=== PATIENT | male | born 1995 ===

== ENCOUNTER 2017-05-10 02:21 | Emergency (ER) | payer SELFPAY ==
[~2017-05-10] VITALS: Ht 170.2 cm; Wt 82.0 kg
[2017-05-10 02:25] VITALS: Ht 170.2 cm; Wt 82.0 kg
[2017-05-10] MEDS ORDERED: IBUPROFEN 800 MG TAB PO ONE (03:00)
[2017-05-10] MEDS ORDERED: morphine 10 MG INJ IV ONE (03:00)
--- NOTE | 2017-05-10 04:18 | RADRPT ---
PROCEDURE: XR Left Ankle. CLINICAL INDICATION: Fall, twisted, pain TECHNIQUE: AP, oblique and lateral views of the left ankle were performed. COMPARISON: None. FINDINGS: There is diffuse soft tissue swelling greatest laterally. No fracture or dislocation is seen. IMPRESSION: There is diffuse soft tissue swelling greatest laterally. No fracture or dislocation is seen. RPTAT: HJES .Jerel Larson MD, MD Date Time Electronically viewed and signed by .Jerel Larson MD, on 05/10/2017 04:18 .S/
[2017-05-10] MEDS ORDERED: NAPR-688 PO (04:25)
--- NOTE | 2017-05-10 04:33 | ERD ---
ER Documentation Chief Complaint Date/Time DATE: 05/10/17 TIME: 04:27 Chief Complaint sp ground level fall, left ankle pain HPI 22-year-old male comes in for left ankle pain after he twisted his ankle inverting it while he fell. He had no other injuries. He has pain only along the lateral ankle and he has discoloration and bruising . ROS All systems reviewed and are negative except as per history of present illness. Medications Home Meds Active Scripts Naproxen* (Naproxen*) 500 Mg Tablet, 500 MG PO BID Y for PAIN, #20 TAB Prov:GOLD STROUD DO 05/10/17 Allergies Allergies: Coded Allergies: No Known Allergy (Unverified , 05/10/17) PMhx/Soc Medical and Surgical Hx: pt denies Medical Hx, pt denies Surgical Hx Hx Alcohol Use: No Hx Substance Use: No Hx Tobacco Use: No Smoking Status: Never smoker Physical Exam Vitals Vital Signs Date Time Temp Pulse Resp B/P Pulse Ox O2 Delivery O2 Flow Rate FiO2 05/10/17 02:25 97.8 73 20 140/83 100 Physical Exam Const: [] Mild distress. Head: Atraumatic Eyes: Normal Conjunctiva Back: No midline or flank tenderness Ext: Left lateral ankle edema with purpuric bruising lateral ankle with tenderness about the lateral malleolus and below consistent with ATF injury. Distal pulses and capillary refill intact Results 24 hrs Current Medications Medications (Trade) Dose Ordered Sig/Anna Route PRN Reason Start Time Stop Time Status Last Admin Dose Admin Morphine Sulfate (morphine) 6 mg ONCE ONCE IV 05/10/17 03:00 05/10/17 03:00 DC Ibuprofen (Motrin) 800 mg ONCE ONCE PO 05/10/17 03:00 05/10/17 03:01 DC 05/10/17 03:01 Procedures/MDM Left lateral ankle sprain. Patient was given analgesic pain medicine including ibuprofen and I believe morphine morphine. His pain was much better. He was placed in Ramon wrap after which I perform neurovascular assessment is capillary refill was less than 1 second. Going to discharge with instructions to follow- up with his primary care doctor and return precautions to the ER. Discharging with naproxen X-ray left ankle interpretation: See soft tissue swelling with no other acute process. No fracture dislocation. Departure Diagnosis: Primary Impression: Left ankle sprain Condition: Stable Patient Instructions: Treating Ankle Sprains Additional Instructions: Call your primary care doctor TOMORROW for an appointment during the next 2-3 days.See the doctor sooner or return here if your condition worsens before your appointment time. GOLD STROUD DO May 10, 2017 04:33
== END 2017-05-10 04:45 | disposition home or self-care (01) ==
LOC: FTE 02:21
DX: S93.402A Sprain of unspecified ligament of left ankle, initial encounter (principal); W18.39XA Other fall on same level, initial encounter; Y92.9 Unspecified place or not applicable
CPT/HCPCS: 73610

== ENCOUNTER 2017-08-23 16:34 | Emergency (ER) | END 2017-08-23 20:52 | disposition home or self-care (01) ==